=== PATIENT | male | born 1990 | race Caucasian/White ===

== ENCOUNTER 2016-11-25 20:06 | Inpatient (IN) | payer BC ==
[2016-11-25] MEDS ORDERED: ACETAMINOPHEN IV (For NPO) 1,000 MG in SALINE 1 100ML.BAG IVPB STA (20:40)
[2016-11-25] MEDS ORDERED: RX INFO: IV CONTRAST WAS GIVEN 1 EACH MISC MISCELLANE PRN (20:40)
[2016-11-25] MEDS ORDERED: PANTOPRAZOLE 40 MG/10 ML VIAL IVP STA (20:40)
[2016-11-25] MEDS ORDERED: SODIUM CHLORIDE 0.9% 1,000 ML IV STA ×2 (20:40)
--- NOTE | 2016-11-25 20:44 | ED ---
General Adult HPI - General Chief complaint: Abdominal Pain Stated complaint: LUQ Abd pain Time Seen by Provider: 11/25/16 20:33 Source: patient, family, RN notes reviewed Mode of arrival: ambulatory Limitations: no limitations - History of Present Illness Initial comments: Patient is a pleasant 26-year-old male presenting to the emergency department complaining of abdominal discomfort. Onset was almost 2 days ago. Discomfort has been progressively worsening since that time. Discomfort is mostly in the left side, mostly upper abdomen. No back discomfort. No dysuria or hematuria. No constipation or diarrhea. No nausea or vomiting. No fevers. No history of similar symptoms previously. - Related Data Home Medications Medication Instructions Recorded Confirmed No Known Home Medications [No 11/25/16 11/25/16 Known Home Medications] Allergies Allergy/AdvReac Type Severity Reaction Status Date / Time No Known Allergies Allergy Verified 11/25/16 20:24 Review of Systems ROS Statement: Those systems with pertinent positive or pertinent negative responses have been documented in the HPI. ROS Other: All systems not noted in ROS Statement are negative. Constitutional: Denies: fever, chills Eyes: Denies: eye pain ENT: Denies: ear pain Respiratory: Denies: cough Cardiovascular: Denies: chest pain Endocrine: Denies: fatigue Gastrointestinal: Reports: abdominal pain. Denies: nausea, vomiting, diarrhea, constipation Genitourinary: Denies: dysuria, frequency Musculoskeletal: Denies: back pain Skin: Denies: rash Neurological: Denies: weakness Past Medical History Past Medical History: No Reported History History of Any Multi-Drug Resistant Organisms: None Reported Additional Past Surgical History / Comment(s): right hand Past Psychological History: No Psychological Hx Reported Smoking Status: Never smoker Past Alcohol Use History: Occasional Past Drug Use History: None Reported General Exam Limitations: no limitations General appearance: alert, in no apparent distress Head exam: Present: atraumatic Eye exam: Present: normal appearance, PERRL ENT exam: Present: normal oropharynx Neck exam: Present: normal inspection Respiratory exam: Present: normal lung sounds bilaterally Cardiovascular Exam: Present: regular rate, normal rhythm GI/Abdominal exam: Present: soft, tenderness (Minimal tenderness left lower quadrant. Mild tenderness left upper quadrant. Mild to moderate tenderness right lower quadrant only with deep palpation.), normal bowel sounds. Absent: distended, guarding, rebound, rigid, pulsatile mass Extremities exam: Present: normal inspection. Absent: pedal edema, calf tenderness Back exam: Present: normal inspection. Absent: CVA tenderness (L) Neurological exam: Present: alert Psychiatric exam: Present: normal affect, normal mood Skin exam: Absent: rash Course Vital Signs 11/25/16 11/25/16 11/25/16 20:09 21:04 21:52 Temperature 101.2 F H 102.6 F H 100.8 F H Pulse Rate 107 H 97 82 Respiratory 22 18 16 Rate Blood Pressure 161/93 137/76 126/62 O2 Sat by Pulse 99 100 96 Oximetry Medical Decision Making - Medical Decision Making Patient reexamined and updated. Dr. Jael cordoba for admission. - Lab Data Result diagrams: 11/25/16 20:39 11/25/16 20:39 Lab Results 11/25/16 11/25/16 11/25/16 Range/Units 20:39 20:39 20:39 WBC 14.2 H (3.8-10.6) k/uL RBC 5.06 (4.30-5.90) m/uL Hgb 15.2 (13.0-17.5) gm/dL Hct 44.9 (39.0-53.0) % MCV 88.6 (80.0-100.0) fL MCH 29.9 (25.0-35.0) pg MCHC 33.8 (31.0-37.0) g/dL RDW 12.4 (11.5-15.5) % Plt Count 198 (150-450) k/uL Neutrophils % 83 % Lymphocytes % 11 % Monocytes % 5 % Eosinophils % 1 % Basophils % 0 % Neutrophils # 11.8 H (1.3-7.7) k/uL Lymphocytes # 1.5 (1.0-4.8) k/uL Monocytes # 0.7 (0-1.0) k/uL Eosinophils # 0.1 (0-0.7) k/uL Basophils # 0.0 (0-0.2) k/uL PT 11.1 (9.0-12.0) sec INR 1.1 (<1.1) APTT 22.8 (22.0-30.0) sec Sodium 139 (137-145) mmol/L Potassium 4.2 (3.5-5.1) mmol/L Chloride 99 (98-107) mmol/L Carbon Dioxide 26 (22-30) mmol/L Anion Gap 14 mmol/L BUN 14 (9-20) mg/dL Creatinine 0.99 (0.66-1.25) mg/dL Est GFR (MDRD) Af Amer >60 (>60 ml/min/1.73 sqM) Est GFR (MDRD) Non-Af >60 (>60 ml/min/1.73 sqM) Glucose 112 H (74-99) mg/dL Plasma Lactic Acid [place] (0.7-2.0) mmol/L Calcium 9.9 (8.4-10.2) mg/dL Total Bilirubin 1.2 (0.2-1.3) mg/dL AST 32 (17-59) U/L ALT 65 (21-72) U/L Alkaline Phosphatase 52 (38-126) U/L Total Protein 7.6 (6.3-8.2) g/dL Albumin 4.4 (3.5-5.0) g/dL Amylase 54 (30-110) U/L Lipase 59 (23-300) U/L Urine Color Urine Appearance (Clear) Urine pH (5.0-8.0) Ur Specific [place] (1.001-1.035) Urine Protein (Negative) Urine Glucose (UA) (Negative) Urine Ketones (Negative) Urine Blood (Negative) Urine Nitrate (Negative) Urine Bilirubin (Negative) Urine Urobilinogen (<2.0) mg/dL Ur Leukocyte Esterase (Negative) 11/25/16 11/25/16 Range/Units 20:39 21:05 WBC (3.8-10.6) k/uL RBC (4.30-5.90) m/uL Hgb (13.0-17.5) gm/dL Hct (39.0-53.0) % MCV (80.0-100.0) fL MCH (25.0-35.0) pg MCHC (31.0-37.0) g/dL RDW (11.5-15.5) % Plt Count (150-450) k/uL Neutrophils % % Lymphocytes % % Monocytes % % Eosinophils % % Basophils % % Neutrophils # (1.3-7.7) k/uL Lymphocytes # (1.0-4.8) k/uL Monocytes # (0-1.0) k/uL Eosinophils # (0-0.7) k/uL Basophils # (0-0.2) k/uL PT (9.0-12.0) sec INR (<1.1) APTT (22.0-30.0) sec Sodium (137-145) mmol/L Potassium (3.5-5.1) mmol/L Chloride (98-107) mmol/L Carbon Dioxide (22-30) mmol/L Anion Gap mmol/L BUN (9-20) mg/dL Creatinine (0.66-1.25) mg/dL Est GFR (MDRD) Af Amer (>60 ml/min/1.73 sqM) Est GFR (MDRD) Non-Af (>60 ml/min/1.73 sqM) Glucose (74-99) mg/dL Plasma Lactic Acid [place] 1.0 (0.7-2.0) mmol/L Calcium (8.4-10.2) mg/dL Total Bilirubin (0.2-1.3) mg/dL AST (17-59) U/L ALT (21-72) U/L Alkaline Phosphatase (38-126) U/L Total Protein (6.3-8.2) g/dL Albumin (3.5-5.0) g/dL Amylase (30-110) U/L Lipase (23-300) U/L Urine Color Yellow Urine Appearance Clear (Clear) Urine pH 8.0 (5.0-8.0) Ur Specific [place] 1.014 (1.001-1.035) Urine Protein Negative (Negative) Urine Glucose (UA) Negative (Negative) Urine Ketones Negative (Negative) Urine Blood Negative (Negative) Urine Nitrate Negative (Negative) Urine Bilirubin Negative (Negative) Urine Urobilinogen <2.0 (<2.0) mg/dL Ur Leukocyte Esterase Negative (Negative) - Radiology Data Radiology results: image reviewed (Computed tomography scan of the abdomen pelvis concerning for appendicitis. Two-view chest x-ray shows no acute process.) Disposition Clinical Impression: Acute appendicitis Disposition: ADMITTED IP TO THIS HOSP
[2016-11-25 21:15] LABS: Basophils % (A) 0 %; CH 31.7; CHCM 35.9; Eosinophils # (A) 0.1 k/uL (0-0.7); Eosinophils % (A) 1 %; HCT 44.9 % (39.0-53.0); HDW 2.88; HGB 15.2 gm/dL (13.0-17.5); Luc # (Auto) 0.15; Luc % (Auto) 1; Lymphocytes # (A) 1.5 k/uL (1.0-4.8); Lymphocytes % (A) 11 %; MCH 29.9 pg (25.0-35.0); MCHC 33.8 g/dL (31.0-37.0); MCV 88.6 fL (80.0-100.0); Mean Platelet Volume 7.8; Monocytes # (A) 0.7 k/uL (0-1.0); Monocytes % (A) 5 %; Neutrophils # (A) 11.8 k/uL (1.3-7.7); Neutrophils % (A) 83 %; RBC 5.06 m/uL (4.30-5.90); RDW 12.4 % (11.5-15.5); WBC 14.2 k/uL (3.8-10.6); WBC (Perox) 14.15
[2016-11-25 21:21] LABS: Appearance,Urine Clear (Clear); Bilirubin,Urine Negative (Negative); Glucose,Urine (UA) Negative (Negative); Ketones,Urine Negative (Negative); Leukocyte Esterase,Urine Negative (Negative); Nitrite,Urine Negative (Negative); Protein,Urine Negative (Negative); Specific Gravity,Urine 1.014 (1.001-1.035); UA Billing (MACRO vs. MICRO) CHEM; Urobilinogen,Urine <2.0 mg/dL (<2.0)
[2016-11-25 21:24] LABS: INR 1.1 (<1.1); Partial Thromboplastin Time 22.8 sec (22.0-30.0); Prothrombin Time 11.1 sec (9.0-12.0)
[2016-11-25 21:29] LABS: ALT 65 U/L (21-72); AST 32 U/L (17-59); Alkaline Phosphatase 52 U/L (38-126); Amylase 54 U/L (30-110); Anion Gap 14 mmol/L; Blood Urea Nitrogen 14 mg/dL (9-20); Calcium 9.9 mg/dL (8.4-10.2); Carbon Dioxide 26 mmol/L (22-30); Chloride 99 mmol/L (98-107); Glucose 112 mg/dL (74-99); Non-African American GFR(MDRD) >60 (>60 ml/min/1.73 sqM); Potassium 4.2 mmol/L (3.5-5.1); Sodium 139 mmol/L (137-145); Total Bilirubin 1.2 mg/dL (0.2-1.3); Total Protein 7.6 g/dL (6.3-8.2)
--- NOTE | 2016-11-25 21:31 | XR ---
EXAMINATION TYPE: XR chest 2V DATE OF EXAM: 11/25/2016 9:19 PM COMPARISON: 03/02/2012 HISTORY: Epigastric pain TECHNIQUE: Frontal and lateral views of the chest are obtained. FINDINGS: Heart and mediastinum are normal. Lungs are clear. Costophrenic angles are clear. There ar e no hilar masses. Bony thorax is intact. IMPRESSION: Normal chest. No change.
[2016-11-25] MEDS ORDERED: NALOXONE 0.4 MG/ML 1 ML VIAL IV PRN (22:34)
[2016-11-25] MEDS ORDERED: ONDANSETRON 4 MG/2 ML VIAL IVP PRN (22:34)
--- NOTE | 2016-11-25 22:42 | CT ---
EXAMINATION TYPE: CT abdomen pelvis w con DATE OF EXAM: 11/25/2016 10:14 PM COMPARISON: NONE HISTORY: LUQ pain with nausea and fever. CT DLP: 2135.70 mGycm Automated exposure control for dose reduction was used. TECHNIQUE: Helical acquisition of images was performed from the lung bases through the pelvis. CONTRAST: Performed without Oral Contrast and with IV Contrast, patient injected with 100 mL of Omnipaque 300. FINDINGS: LUNG BASES: No significant abnormality is appreciated. LIVER/GB: Mild fatty infiltration changes of liver are noted. Gallbladder appears grossly unremarkabl e. PANCREAS: No significant abnormality is seen. SPLEEN: No significant abnormality is seen. ADRENALS: No significant abnormality is seen. KIDNEYS: No significant abnormality is seen. REPRODUCTIVE ORGANS: Prostate gland appears unremarkable. URINARY BLADDER: No significant abnormality is seen. Urinary bladder is not well distended. PELVIC ADENOPATHY: None visualized. There are multiple mesenteric lymph nodes most of them measure less than 1 cm in diameter in the kaia nal image 44 and are most likely benign lymph nodes. Largest of these mesenteric lymph nodes measures 1.3 x 1.0 cm in the axial image 56. Possibility of mild mesenteric lymphadenitis cannot be excluded. No significant retroperitoneal lymphadenopathy is noted. OSSEOUS STRUCTURES: There is minor retrolisthesis of L5 on S1 vertebra with mild to moderate degener ative disc disease changes. BOWEL: There is evidence of mucosal wall thickening measuring 1.4 cm in diameter in the axial image 74 with periappendiceal fat stranding without significant fluid collection most likely representing a cute appendicitis changes. These changes are better demonstrated in the coronal images 43-47 Visualized stomach, small bowel loops appear grossly unremarkable. There is mild colonic diverticulos is. OTHERS: Small fat-containing inguinal hernia is noted on the right side. IMPRESSION: 1. FINDINGS ARE COMPATIBLE WITH ACUTE APPENDICITIS CHANGES DESCRIBED ABOVE. 2. MILD COLONIC DIVERTICULOSIS. 3. MILD FATTY INFILTRATION OF LIVER. 4. MESENTERIC LYMPH NODES ARE NOTED POSSIBILITY OF MILD MESENTERIC LYMPHADENITIS CANNOT BE EXCLUDED. A PHONE REPORT IS GIVEN TO DR. JOSE F RODRIGUEZ AT THE TIME OF THE DICTATION.
[2016-11-25] MEDS: SODIUM CHLORIDE 0.9% 1,000 ML IV SCH ×2 (22:57→23:43)
[2016-11-25] MEDS: MORPHINE SULFATE 4 MG/ML SYRINGE IV PRN (22:58)
[2016-11-25 23:58] VITALS: BMI 36.3
[2016-11-26] MEDS: MORPHINE SULFATE 4 MG/ML SYRINGE IV PRN ×2 (01:58→05:57)
[2016-11-26] MEDS: PANTOPRAZOLE 40 MG/10 ML VIAL IV SCH (08:23)
[2016-11-26 09:39] VITALS: RESP 16
[2016-11-26] MEDS ORDERED: IV FLUID CONTINUATION 1,000 ML IV ONE (09:40)
[2016-11-26] MEDS ORDERED: DEXAMETHASONE SOD PHOSPHATE 10 MG/ML 1 ML VIAL IV ONE (09:52)
[2016-11-26] MEDS ORDERED: HEPARIN SODIUM,PORCINE 5,000 UNIT/ML 1 ML VIAL SQ STA (10:22)
[2016-11-26] MEDS ORDERED: PIPERACILLIN-TAZOBACTAM 3.375 GM in DEXTROSE/WATER 1 50ML.BAG IVPB STA (10:22)
--- NOTE | 2016-11-26 10:29 | P.GSHP ---
History of Present Illness H&P Date: 11/26/16 Chief Complaint: Acute appendicitis Patient was admitted to the hospital last night with abdominal pain. This pain began about 3 days ago. Was associated with nausea and vomiting. Pain initially was in the upper abdomen but is moved down to the right lower quadrant and left lower quadrant. He is still nauseous. He feels bloated. No appetite. He did have fevers last night. CAT scan showed evidence of acute appendicitis. No history of similar events in the past. White blood cell count is elevated. Denies rectal bleeding or melena. - Review of Systems Comment: The patient denies any acute changes in his vision or hearing, no dysphagia or odynophagia, no chest pain or shortness of breath, no dysuria or hematuria, no headache, no runny nose, no rectal bleeding or melena, no unexplained weight loss Past Medical History Past Medical History: No Reported History History of Any Multi-Drug Resistant Organisms: None Reported Additional Past Surgical History / Comment(s): right hand Past Anesthesia/Blood Transfusion Reactions: No Reported Reaction Past Psychological History: No Psychological Hx Reported Smoking Status: Never smoker Past Alcohol Use History: Occasional Past Drug Use History: None Reported Medications and Allergies Home Medications Medication Instructions Recorded Confirmed Type No Known Home Medications [No 11/25/16 11/25/16 History Known Home Medications] Allergies Allergy/AdvReac Type Severity Reaction Status Date / Time No Known Allergies Allergy Verified 11/25/16 20:24 Surgical - Exam Vital Signs Temp Pulse Resp BP Pulse Ox 101.2 F H 107 H 22 161/93 99 11/25/16 20:09 11/25/16 20:09 11/25/16 20:09 11/25/16 20:09 11/25/16 20:09 Physical exam: General: Well-developed, well-nourished HEENT: Normocephalic, sclerae nonicteric Abdomen: Tenderness right lower quadrant, nondistended Extremities: No edema Neuro: Alert and oriented Results - Labs 11/25/16 20:39 11/25/16 20:39 Assessment and Plan (1) Acute appendicitis Narrative/Plan: Will proceed with laparoscopic appendectomy. The risks of bleeding, infection, abscess, hernia, conversion to an open procedure, bowel or ureteral injury were discussed. He understands and wishes to proceed. Status: Acute
[2016-11-26] MEDS ORDERED: fentaNYL (PF) 50 MCG/ML 2 ML AMP ONE (11:27)
[2016-11-26] MEDS ORDERED: LIDOCAINE 1% INJ 10MG/ML (20 ML MDV) ONE (11:27)
[2016-11-26] MEDS ORDERED: SUCCINYLCHOLINE CHLORIDE VIAL 200 MG/10 ML VIAL IV ONE (11:27)
[2016-11-26] MEDS ORDERED: MIDAZOLAM 2 MG/2 ML VIAL ONE (11:27)
[2016-11-26] MEDS ORDERED: PROPOFOL 10 MG/ML 20 ML VIAL IV ONE (11:27)
[2016-11-26] MEDS ORDERED: ROCURONIUM BROMIDE 10 MG/ML 10 ML VIAL IV ONE (11:27)
[2016-11-26] MEDS ORDERED: BUPIVACAIN-EPI 0.25%-1:200,000 30 ML VIAL SQ ONE ×3 (11:33→12:23)
[2016-11-26] MEDS ORDERED: LACTATED RINGERS 1,000 ML IV ONE (12:34)
[2016-11-26] MEDS ORDERED: HYDROmorphone 1 MG/ML 1 ML SYRINGE IVP PRN (12:35)
--- NOTE | 2016-11-26 12:40 | P.PCN ---
Date of Procedure: 11/26/16 Procedure(s) Performed: PREOPERATIVE DIAGNOSIS: Acute appendicitis POSTOPERATIVE DIAGNOSIS: Same PROCEDURE: Laparoscopic appendectomy SURGEON: Osito EBL: Total ANESTHESIA: General COMPLICATIONS: None OPERATIVE PROCEDURE: The patient was brought and placed on the operating table in the supine position. The patient was placed under general anesthesia. The abdomen was prepped and draped in the usual sterile fashion. A small vertical infraumbilical incision was made. The fascia was retracted anteriorly with [place] forceps. The Veress needle was advanced into the perineal cavity. The saline drop test was normal. Insufflation took place to 15 mmHg. A 5 mm trocar was then placed. An additional 5 mm suprapubic trocar was placed under direct visualization as well as a 12 mm left lower quadrant trocar under direct visualization. The appendix was inspected. It was acutely inflamed. The mesoappendix was dissected. The base of the appendix was divided using a linear 45 mm intestinal stapler. The mesentery itself was divided using 2 separate firings of the canas load stapler. I also used a 12 mm clipper on a small vessel adjacent to the base of the appendix. The area was then irrigated. No further purulence or bleeding was seen. The appendix was brought out of the peritoneal cavity through the left lower quadrant trocar site using an Endo Catch bag.. The fascia at the 12 mm site was closed using a Rehan Rodriguez 0 Vicryl stitch. The skin at all 3 sites was closed using 4-0 Monocryl sutures. Steri-Strips and sterile dressings then applied. DISPOSITION: Stable to recovery room
[2016-11-26] MEDS ORDERED: HYDROmorphone 1 MG/ML 1 ML SYRINGE IVP ONE ×2 (13:00→13:05)
[2016-11-26] MEDS: HYDROcodone/APAP 7.5-325MG 1 EACH TAB PO PRN ×2 (15:39→21:39)
[2016-11-26] MEDS: SODIUM CHLORIDE 0.9% 1,000 ML IV SCH ×2 (15:42→21:41)
[2016-11-27] MEDS: HYDROcodone/APAP 7.5-325MG 1 EACH TAB PO PRN (04:21)
[2016-11-27] MEDS: PANTOPRAZOLE 40 MG/10 ML VIAL IV SCH (08:43)
--- NOTE | 2016-11-27 12:21 | P.DS ---
Providers Date of admission: 11/25/16 22:34 Expected date of discharge: 11/27/16 Attending physician: Tito Mcneill Primary care physician: Stated None - Discharge Diagnosis(es) (1) Acute appendicitis Patient admitted with acute appendicitis. He underwent uneventful laparoscopic appendectomy yesterday. He is doing well today. His incisions are healing up properly. His pain is minimal. He is tolerating a diet. He is afebrile. He will be discharged today with perception for oral pain meds. He will follow-up with me in the office in one week. Current Visit: Yes Status: Acute Plan - Discharge Summary New Discharge Prescriptions: HYDROcodone/APAP 7.5-325MG [[place] 7.5-325] 1 tab PO Q6HR #30 tab Discharge Medication List HYDROcodone/APAP 7.5-325MG [[place] 7.5-325] 1 tab PO Q6HR #30 tab 11/26/16 [Rx] Follow up Appointment(s)/Referral(s): Tito Mcneill MD [Medical Doctor] - 2 Weeks None,Stated [Primary Care Provider] - 1-2 days
[2016-11-27 12:39] VITALS: BP 106/64; PULSE 61; TEMP 97
== END 2016-11-27 13:10 | disposition home or self-care (01) | DRG 343 ==
LOC: EC 20:06 → 3SUR 22:34
PROVIDERS: ADMIT Surgery; ATTEND Surgery
PROC: 0DTJ4ZZ Resection of Appendix, Percutaneous Endoscopic Approach (ICD-10-PCS; principal; 2016-11-26 07:30)
DX: K35.80 Unspecified acute appendicitis (principal)
CPT/HCPCS: 36415; 71020; 74177; 80053; 81003; 82150; 83605; 83690; 85025; 85610; 85730; 87040; 87086; 88304; 96361; 96365; 96375; 99285